=== PATIENT | female | born 1980 | race Caucasian/White ===

== ENCOUNTER 2018-07-12 14:55 | Inpatient (IN) | payer MEDICAID ==
[~2018-07-12] VITALS: Ht 162.6 cm; Wt 56.7 kg
[2018-07-12 19:44] VITALS: BP 128/78
[2018-07-12] MEDS ORDERED: LURA40 PO (20:54)
[2018-07-12] MEDS ORDERED: BUPR100SR PO (20:54)
[2018-07-12] MEDS ORDERED: OLAN5TAB2 PO (20:54)
[2018-07-12] MEDS ORDERED: PETROLATUM,WHITE 28 GM JELLY TP PRN (21:30)
[2018-07-12] MEDS ORDERED: GuaiFENesin/D-METHORPHAN [SUGAR-FREE] 200-20MG/10 ML SYRUP UDCUP PO PRN (21:30)
[2018-07-12] MEDS ORDERED: ONDANSETRON HCL 4 MG TABLET PO PRN (21:30)
[2018-07-12] MEDS ORDERED: ACETAMINOPHEN 325 MG TABLET PO PRN (21:30)
[2018-07-12] MEDS ORDERED: MAG HYDROX/AL HYDROX/SIMETH ES 30 ML SUSPENSION UDCUP PO PRN (21:30)
[2018-07-12] MEDS ORDERED: DOCUSATE SODIUM 100 MG CAPSULE PO PRN (21:30)
[2018-07-12] MEDS ORDERED: NICOTINE 14 MG/24 HOUR PATCH TD PRN (21:30)
[2018-07-12] MEDS ORDERED: ALBUTEROL SULFATE HFA 90 MCG/PUFF 8 GM INHALER IH PRN (21:30)
[2018-07-12] MEDS ORDERED: LOPERAMIDE HCL 2 MG CAPSULE PO PRN (21:30)
[2018-07-12] MEDS ORDERED: IBUPROFEN 400 MG TABLET PO PRN (21:30)
[2018-07-12] MEDS ORDERED: CloNIDine HCL 0.1 MG TABLET PO PRN (21:30)
[2018-07-12] MEDS ORDERED: MAGNESIUM HYDROXIDE SUSPENSION 30 ML UDCUP PO PRN (21:30)
[2018-07-12] MEDS: LORazepam 2 MG TABLET PO PRN (22:34)
[2018-07-12] MEDS: ZOLPIDEM TARTRATE 10 MG TABLET PO PRN (22:34)
[2018-07-13 00:25] VITALS: BP 122/72
[2018-07-13 08:40] VITALS: BP 105/62
[2018-07-13 08:52] LABS: BASOPHILS % (AUTO) 0.4 % (0.0-2.0); EOSINOPHILS % (AUTO) 2.9 % (1.0-6.0); HEMATOCRIT 42.7 % (36-46); HEMOGLOBIN 14.7 g/dL (12.0-16.0); LYMPHOCYTES % (AUTO) 26.9 % (22.0-44.0); MEAN CORPUSCULAR HEMOGLOBIN 32.3 pg (26.0-34.0); MEAN CORPUSCULAR HGB CONC 34.4 G/dL (31.0-37.0); MEAN CORPUSCULAR VOLUME 94 fL (80-100); MONOCYTES # (AUTO) 0.5 K/uL (0.1-1.0); MONOCYTES % (AUTO) 6.5 % (2.0-9.0); NEUTROPHILS # (AUTO) 4.8 K/uL (1.8-7.7); NEUTROPHILS % (AUTO) 63.3 % (40.0-70.0); PLATELET COUNT (AUTO) 252 K/uL (150-450); RED BLOOD CELL COUNT(AUTO) 4.55 MIL/uL (4.00-5.20); RED CELL DISTRIBUTION WIDTH 12.5 % (11.5-14.5)
[2018-07-13 09:39] LABS: HEMOGLOBIN A1C 5.3 % (4.5-6.2)
[2018-07-13 09:57] LABS: ALANINE AMINOTRANSFERASE 11 U/L (12-78); ALBUMIN 3.6 g/dL (3.4-5.0); ALKALINE PHOSPHATASE 33 U/L (46-116); ANION GAP 11 mmol/L (8-16); ASPARTATE AMINOTRANSFERASE 9 U/L (15-37); CALCIUM, TOTAL 8.9 mg/dL (8.8-10.5); CARBON DIOXIDE 25 mmol/L (22-29); CHLORIDE 104 mmol/L (98-107); CHOL/HDL RATIO 4.5 (3.9-5.7); CHOLESTEROL 194 mg/dL (131-200); CREATININE 0.81 mg/dL (0.60-1.30); FREE T4 (FREE THYROXINE) 0.97 ng/dL (0.76-1.46); GLOMERULAR FILTR. RATE CALC > 60 mL/min (>60); GLUCOSE,RANDOM 83 mg/dL (70-110); HDL CHOLESTEROL 43 mg/dL (40-60); LDL CHOL (CALC.) 123 mg/dL (0-130); POTASSIUM 3.9 mmol/L (3.5-5.1); SODIUM SERUM 140 mmol/L (136-145); THYROID STIMULATING HORMONE 1.52 uIU/mL (0.36-3.74); TOTAL PROTEIN, SERUM 5.9 g/dL (6.4-8.2); TRIGLYCERIDES 139 mg/dL (15-150); UREA NITROGEN, BLOOD 15 mg/dL (7-18)
[2018-07-13] MEDS: OLANZapine 5 MG TABLET PO SCH ×2 (12:46→20:02)
[2018-07-13 16:00] VITALS: BP 110/60
[2018-07-13] MEDS: BuPROPion HCL 100 MG SR TABLET PO SCH (17:22)
[2018-07-13] MEDS: LORazepam 2 MG TABLET PO PRN (17:28)
[2018-07-13] MEDS: HALOPERIDOL 5 MG TABLET PO PRN (18:07)
[2018-07-13] MEDS: ZOLPIDEM TARTRATE 10 MG TABLET PO PRN (21:20)
[2018-07-14 07:19] VITALS: BP 121/68
[2018-07-14] MEDS: BuPROPion HCL 100 MG SR TABLET PO SCH ×2 (08:53→16:23)
[2018-07-14] MEDS: OLANZapine 5 MG TABLET PO SCH ×2 (08:53→20:01)
[2018-07-14] MEDS: LORazepam 2 MG TABLET PO PRN ×2 (08:57→16:15)
[2018-07-14 10:40] VITALS: BP 114/82
[2018-07-14 16:23] VITALS: BP 115/74
[2018-07-14] MEDS: ZOLPIDEM TARTRATE 10 MG TABLET PO PRN (21:03)
[2018-07-15] MEDS: BuPROPion HCL 100 MG SR TABLET PO SCH ×2 (08:32→16:38)
[2018-07-15] MEDS: OLANZapine 5 MG TABLET PO SCH (08:32)
[2018-07-15] MEDS: LORazepam 2 MG TABLET PO PRN ×2 (08:40→16:38)
[2018-07-15 13:50] VITALS: BP 127/93
[2018-07-15 17:27] VITALS: BP 133/86
[2018-07-15] MEDS: OLANZapine 10 MG TABLET PO SCH (20:44)
[2018-07-15] MEDS: ZOLPIDEM TARTRATE 10 MG TABLET PO PRN (21:04)
[2018-07-16] VITALS: BP 112/84
[2018-07-16] MEDS: LORazepam 2 MG TABLET PO PRN ×3 (00:25→23:03)
[2018-07-16] MEDS: BuPROPion HCL 100 MG SR TABLET PO SCH ×2 (09:13→17:10)
[2018-07-16] MEDS: OLANZapine 5 MG TABLET PO SCH (09:13)
[2018-07-16 16:52] VITALS: BP 125/81
[2018-07-16] MEDS: HALOPERIDOL 5 MG TABLET PO PRN (17:11)
[2018-07-16] MEDS: ZOLPIDEM TARTRATE 10 MG TABLET PO PRN (21:13)
[2018-07-16] MEDS: OLANZapine 10 MG TABLET PO SCH (21:13)
[2018-07-16 23:06] VITALS: BP 104/82
[2018-07-17 06:10] VITALS: BP 116/80
[2018-07-17 06:14] VITALS: BP 110/73
[2018-07-17] MEDS: BuPROPion HCL 100 MG SR TABLET PO SCH ×2 (08:33→17:25)
[2018-07-17] MEDS: OLANZapine 5 MG TABLET PO SCH (08:33)
[2018-07-17] MEDS: LORazepam 2 MG TABLET PO PRN (08:33)
[2018-07-17 08:35] VITALS: BP 114/82
[2018-07-17] MEDS: HALOPERIDOL 5 MG TABLET PO PRN (09:30)
[2018-07-17 17:46] VITALS: BP 125/73
[2018-07-17] MEDS: OLANZapine 10 MG TABLET PO SCH (20:44)
[2018-07-17] MEDS: ZOLPIDEM TARTRATE 10 MG TABLET PO PRN (21:56)
[2018-07-18 01:00] VITALS: BP 117/68
[2018-07-18 08:19] VITALS: BP 104/74
[2018-07-18] MEDS: OLANZapine 5 MG TABLET PO SCH (08:32)
[2018-07-18] MEDS: BuPROPion HCL 100 MG SR TABLET PO SCH (08:32)
[2018-07-18] MEDS: DIVALPROEX SODIUM 500 MG DR TABLET PO SCH ×2 (11:00→20:06)
[2018-07-18 16:56] VITALS: BP 122/82
[2018-07-18] MEDS: HALOPERIDOL 5 MG TABLET PO PRN (17:26)
[2018-07-18] MEDS: LORazepam 2 MG TABLET PO PRN (17:26)
[2018-07-18] MEDS: QUEtiapine FUMARATE 200 MG TABLET PO SCH (20:06)
[2018-07-19 00:05] VITALS: BP 95/63
[2018-07-19 08:23] VITALS: BP 106/68
[2018-07-19] MEDS: QUEtiapine FUMARATE 200 MG TABLET PO SCH (08:48)
[2018-07-19] MEDS: DIVALPROEX SODIUM 500 MG DR TABLET PO SCH (08:48)
[2018-07-19] MEDS: LORazepam 2 MG TABLET PO PRN (08:53)
[2018-07-19] MEDS ORDERED: SERTRALINE HCL 50 MG TABLET PO SCH (09:00)
[2018-07-19] MEDS ORDERED: QUET200T PO (14:26)
[2018-07-19] MEDS ORDERED: DIVA-78 PO (14:26)
[2018-07-19] MEDS ORDERED: SERT50TA12 PO (14:26)
[2018-07-19 16:37] VITALS: BP 106/70
== END 2018-07-19 20:17 | disposition home or self-care (01) | DRG 750 ==
LOC: B3A 19:22
DX: F25.0 Schizoaffective disorder, bipolar type (principal); G43.909 Migraine, unspecified, not intractable, without status migrainosus; R00.0 Tachycardia, unspecified; Z88.8 Allergy status to other drugs, medicaments and biological substances; Z91.5 Personal history of self-harm
CPT/HCPCS: 83036; 84439; 84443